=== PATIENT | female | born 1975 | race Caucasian/White ===

== ENCOUNTER → 2018-03-26 10:37 | Outpatient (CLI) | payer OTHER, SELFPAY ==
--- NOTE | 2018-03-26 10:41 | BI_ITS ---
MAMMOGRAPHY - BILATERAL SCREENING REASON FOR EXAM: Female, 42 years old. Routine annual screening examination. PERTINENT HISTORY: Mother with breast cancer. Grandmother with breast cancer. TECHNIQUE: Digital bilateral breast horacio (3D mammographic acquisition) in the CC and MLO projections. 2-D mediolateral oblique (MLO) and craniocaudad (CC) views of both breasts were obtained. CAD: Full Field Digital Mammography with Computer Added Detection was performed. COMPARISON: Comparison is made with prior study dated September 07, 2017 and February 11, 2016. FINDINGS: Breast Composition: The breasts are heterogeneously dense, which may obscure small masses. There are no dominant masses or suspicious calcifications. Stable appearance of the small bilateral axillary lymph nodes. There are 2 subcentimeter well-defined nodules in the central portion of the right breast in keeping with history of prior cysts. No other significant abnormalities are identified. There has been no significant change since the prior study. BI/SCREENING MAMM (CAD), BILAT IMPRESSION: Stable bilateral screening mammogram. Yearly follow-up mammogram recommended. (A) ASSESSMENT CATEGORY: BIRADS Category 2: Benign. A letter regarding these results will be sent to the patient by the facility within 30 days. Approximately 10% of breast cancers are not detected by mammography. A normal mammogram should not delay biopsy of a clinically suspicious abnormality. [id number] Electronically Signed: Mamadou Alas MD at 13:06 EST , Service support ,
== END ==
PROVIDERS: Referring Provider Obstetrics & Gynecology; Visit Provider Obstetrics & Gynecology
DX: Z12.31 Encounter for screening mammogram for malignant neoplasm of breast (principal)
CPT/HCPCS: 77063; 77067

== ENCOUNTER → 2018-10-05 | Outpatient (CLI) | payer OTHER, SELFPAY ==
--- NOTE | 2018-10-05 10:26 | MRI_ITS ---
STUDY: BILATERAL BREAST MR WITHOUT AND WITH CONTRAST REASON FOR EXAM: Female, 43 years old. Family history of breast cancer. TECHNIQUE: Multi-sequence multi-echo imaging of both breasts was performed with a dedicated breast coil. T1-weighted and T2-weighted images were performed before the administration of contrast. T1-weighted images were also performed after the administration of 17 IV Gadavist without complications. COMPARISON: Bilateral mammograms dated March 26, 2018. FINDINGS: RIGHT BREAST: The breast tissue is fatty with minimal background enhancement. There are no abnormal enhancing masses or areas of non-mass enhancement in the right breast. LEFT BREAST: The breast tissue is fatty with minimal background enhancement. There are no abnormal enhancing masses or areas of non-mass enhancement in the left breast. There are no enlarged or abnormal lymph nodes. There is no abnormality in the visualized regions of the chest or liver. MRI/Breast Bilateral W/O and W IMPRESSION: Normal breast MR examination with contrast. CATEGORY: BIRADS Category 1: Negative. A letter regarding these results will be sent to the patient by the facility within 30 days. Electronically Signed: Bro Yang MD at 16:16 EDT , Service support ,
[2018-10-05 13:05] LABS: T4 Free Direct 1.03 ng/dL (0.76-1.46)
[2018-10-07 08:53] LABS: Anti-Thyroglobulin AB < 1.0 IU/mL (0.0-0.9); Thyroglobulin, Serum Qt. < 0.1 ng/mL (1.5-38.5)
== END | disposition home or self-care (01) ==
DX: E89.0 Postprocedural hypothyroidism (principal); Z85.850 Personal history of malignant neoplasm of thyroid; Z12.31 Encounter for screening mammogram for malignant neoplasm of breast; Z80.3 Family history of malignant neoplasm of breast
CPT/HCPCS: 36415; 77049; 84432; 84439; 84443; 86800; A9575; A4216; C8908

== ENCOUNTER 2018-11-25 11:30 | Outpatient (RCR) | payer OTHER, SELFPAY ==
--- NOTE | 2018-11-04 09:05 | HP.OTEVAL ---
Patient's Visit Information TERESA SELF is a 43 year old F, referred to Occupational Therapy by Gregoria Porras MD, with a diagnosis of cubital tunnel syndrome. 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 Pt started to have numbness and tingling bilateral arms last year. 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 Pt R hand dominent. Pt states has more pain and numbness in L arm than right. Tends to pick phone up with L arm to talk and sleeps on L side. Hobbies: four wheeling, yoga. Indep w/ BADLs/IADLs. - Objective Objective/Observation: slight edema L hand, increased tightness R forearm. - ROM Elbow: R 0/136, L 0/140 - Strength Tying Machine Operator Lumber: R 80#, L 68# Lateral Pinch: R 11#, L 9# - Edema Other: Slight edema noted L hand and digits - Sensation Sensation Comments: Numbness and tingling noted R/L RF's and PF's when has bilateral elbows bent for amount of time. - Quick DASH-Disab of Arm,Shoulder& Hand Quick DASH Score: 20.4525 - Goals Goal:: Pt will increase L hand cannon pinion adjuster strength by 7# to increase indep w/ grasping for BADL tasks by d/c from OT services. Goal:: Pt will demo decreased numbness and tingling bilateral hands digits 4 and 5 with use of nerve glides, joint protection techniques and modalities as needed to only minimal numbness and tingling occassionally with monofilament test score of 2.83 by d/c from OT services. 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 Pt started to have numbness and tingling bilateral arms digits 4 and 5 last year. Pt would benefit from direct OT services to educate on joint protection/energy conservation, BUE HEP, decrease edema and numbness/tingling bilateral hands with use of modalities and exercises as needed 1-2x/wk x 4-6wks Rehabilitation Potential: Excellent - Anticipated Interventions Anticipated Interventions: A/AAROM/PROM, Strengthening, Edema Control, Massage, Modalities, Orthoses, Joint Protection/Energy Conservation, Education re assistive Equipment, Education re Diagnosis, Education re Skin Care and Precautions, Education re Self Massage Techniques, Education re Correct Donning Tech,Care&Wearing Sched Comp Garments, Home Program - Visit Plan Frequency: 1-2x /Week Duration: 4-6 Weeks General Plan: Pt seen for initial occupational therapy evaluation for medial epicondylitis L eblow, 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 Pt started to have numbness and tingling bilateral arms digits 4 and 5 last year. Pt would benefit from direct OT services to educate on joint protection/energy conservation, BUE HEP, decrease edema and numbness/tingling bilateral hands with use of modalities and exercises as needed 1-2x/wk x 4-6wks TEXT: Thank you for the opportunity to evaluate your patient. For Medicare and Medicare HMO plans, please review the plan of care and approve it. It will need to be FAXED BACK to us at [phone] for Medicare purposes. Please let me know if there are questions or concerns regarding this plan of care. Physician Signature: Date:
--- NOTE | 2019-03-15 17:22 | HP.OTDCNRP_ITS ---
HP - Discharge Summary - Patient Information TERESA SELF was seen in my office for initial evaluation on 11/02/18. The following Plan of Care was established for this patient: Initial Frequency: 1-2x /Week Initial Duration: 4-6 Weeks Plan: OT educated pt on pros/cons of use of brace for elbow. To be addressed next session. - Anticipated Interventions Anticipated Interventions: A/AAROM/PROM, Strengthening, Edema Control, Massage, Modalities, Orthoses, Joint Protection/Energy Conservation, Education re assistive Equipment, Education re Diagnosis, Education re Skin Care and Precautions, Education re Self Massage Techniques, Education re Correct Donning Tech,Care&Wearing Sched Comp Garments, Home Program This patient was last seen in our office 11/25/18. Pertinent comments regarding their Occupational therapy will appear below: Pt last seen 11/25/18. Pt did not meet all goals. D/C OT POC secondary to pt non- return. At this point I will be discontinuing this patient from occupational therapy. I would be happy to see this patient again in the future if found appropriate by the physician. Thank you! Kelsie Schaffer
== END 2018-11-25 19:00 | disposition home or self-care (01) ==
LOC: OT 11:30
PROVIDERS: Referring Provider Orthopaedic Surgery Hand Surgery; Visit Provider Orthopaedic Surgery Hand Surgery
DX: M77.02 Medial epicondylitis, left elbow (principal); G56.23 Lesion of ulnar nerve, bilateral upper limbs
CPT/HCPCS: 97035; 97110; 97140; 97165; 97166; 97530

== ENCOUNTER → 2019-02-08 13:00 | Outpatient (CLI) | payer OTHER, SELFPAY ==
--- NOTE | 2019-02-08 13:45 | MRI_ITS ---
STUDY: MRI RIGHT ANKLE WITHOUT CONTRAST REASON FOR EXAM: Right lateral ankle pain, injury 12/16/2018. TECHNIQUE: Standardized fat and water weighted pulse sequences were obtained in all 3 orthogonal planes. COMPARISON: None. FINDINGS: There is edema in the lateral and medial subcutis adipose space. There is a very small volume of fluid in the submalleolar posterior tibialis tendon sheath (inversion recovery sagittal image 19). The posterior tibialis tendon is morphologically normal. Normal flexor digitorum longus tendon. Normal flexor hallucis longus tendon. There is a very small volume of fluid in the submalleolar peroneal tendon sheath (inversion recovery sagittal image 5). The peroneus longus and brevis tendons are morphologically normal. Normal tibialis anterior tendon. Normal extensor hallucis longus tendon. Normal extensor digitorum longus tendons. Normal Achilles tendon and teno-osseous insertion. Normal plantar fascia. Normal plantar calcaneal tubercles. Normal intrinsic muscles of the rearfoot. Normal distal tibiofibular syndesmotic ligamentous complex. There is a mild sprain of the anterior talofibular ligament (inversion recovery series 8 image 12). Normal calcaneofibular and posterior talofibular ligaments. Normal subtalar ligaments and sinus tarsi. Normal deltoid ligamentous complexes. Normal plantar calcaneonavicular (spring) ligament. Normal tibiotalar articulation. Normal talar dome. Normal subtalar articulations. Normal talonavicular articulation. Normal calcaneocuboid articulation. Normal navicular-cuneiform articulations. MRI/Lower Ext Joint Only (Routine) IMPRESSION: Mild sprain of the anterior talofibular ligament. Very mild peroneal tenosynovitis. Very mild posterior tibialis tenosynovitis. Electronically Signed: Raz Hernandez MD at 14:55 EST Tel , Service support ,
== END ==
PROVIDERS: Referring Provider Podiatrist; Visit Provider Podiatrist
DX: S93.401A Sprain of unspecified ligament of right ankle, initial encounter (principal); S93.601A Unspecified sprain of right foot, initial encounter
CPT/HCPCS: 73721

== ENCOUNTER → 2019-02-17 15:11 | Outpatient (CLI) | payer OTHER, SELFPAY ==
--- NOTE | 2019-02-17 15:32 | MRI_ITS ---
STUDY: MRI RIGHT FOREFOOT WITHOUT CONTRAST REASON FOR EXAM: Female, 43 years old. rt foot sprain -- ankle/foot sprain 11/2018, pain 3rd,4th,5th MT with pain 3rd and 4th toe, painful to touch TECHNIQUE: Standardized fat and water weighted pulse sequences were obtained in all 3 orthogonal planes. COMPARISON: None. FINDINGS: Normal metatarsophalangeal joint of the hallux. Normal tibial and fibular sesamoids, with normal sesamoids-first metatarsal articulations. Normal interphalangeal joint of the hallux. Normal proximal and distal phalanges of the great toe. Normal medial and lateral heads of the flexor hallucis brevis tendons. Normal flexor and extensor hallucis longus tendons. Normal second through fifth metatarsophalangeal (MTP) joints. Normal interphalangeal joints of the second through fifth toes. Normal proximal, middle and distal phalanges of the second through fifth toes. There is intermetatarsal bursitis at the third interspace. There is adjacent 0.6 cm diminished T1 signal consistent with neuroma, series 4 image /36. Normal flexor and extensor tendons of the second through fifth toes. Normal visualized metatarsi. Normal intrinsic muscles of the forefoot. There is no demonstrated soft tissue abnormality. There is no demonstrated fracture. MRI/Lower Ext/No Jt/w/o IMPRESSION: No fracture or periosteal reaction. Interdigital neuroma at the third interspace. Electronically Signed: Uriel Alvarado MD at 23:07 EST , Service support ,
== END ==
PROVIDERS: Referring Provider Podiatrist; Visit Provider Podiatrist
DX: S93.401A Sprain of unspecified ligament of right ankle, initial encounter (principal); S93.601A Unspecified sprain of right foot, initial encounter
CPT/HCPCS: 73718

== ENCOUNTER 2019-04-05 16:00 | Outpatient (RCR) | payer OTHER, SELFPAY ==
--- NOTE | 2019-03-17 13:28 | HP.OTEVAL_ITS ---
Patient's Visit Information TERESA SELF is a 43 year old F, referred to Occupational Therapy by Gregoria Porras MD, with a diagnosis of lesion of ulnar nerve R/L. Date of Evaluation: 03/17/19 Occupational Therapist: Kelsie Schaffer - Subjective Subjective: Pt seen for initial occupational therapy evaluation for lesion of ulnar nerve R upper limb, lesion of ulnar nerve left upper limb, medial epicondylitis L eblow with increased pain R elbow. Pt was here last fall for therapy and broke her foot and had to be on crutches for 9 wks therefore stopped her therapy bilateral arms. Now returning for therapy. R arm pain Started to get aggrevated when started to use crutches about 2 months ago after fx R foot. Pt does have slight pain when poking around on L elbow and minimal numbness L arm, increased numbness/tingling R UE elbow distally with increased pain R arm rest and movement. Pt states L arm pain is much better from last therapy. 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 - Pain R arm 4 Pain Intensity Range: 4, 7 - Objective Objective/Observation: increased edema R elbow/forearm, increased pain with movmeent R elbow. - ROM Elbow: R 0/120', L 00/132' Wrist: R 65'/90', L 70'/92' - Strength Cloth Painter: R 60#, L 70# Lateral Pinch: R 8#, L 11# Tripod Pinch: R 8#, L 9# - Edema Other: Slight edema R elbow lateral side - Sensation Sensation Comments: Numbness and tingling R RF, PF - Quick DASH-Disab of Arm,Shoulder& Hand Quick DASH Score: 34.0900 - Goals Goal:: Pt will progress w/ R insulation inspector strength by 10# to assist with BADL and IADL tasks indep. Pt will progress w/ L insulation inspector strength by 5# to assist w/ BADL/IADL tasks indep Goal:: Pt will progress w/ R elbow flexion AROM from 120' to 130' by d/c from OT services Goal:: Pt will demo no pain with movement R elbow greater than 2/10 by d/c from OT services Goal:: Pt will be educated on joint protection bilateral arms with good understanding and demo 100%x Goal:: Pt will be educated on BUE HEP with good understanding and demo 100%x - Rehabilitation General Assessment: Pt seen for OT evaluation for increase pain bilateral elbows distally to bilateral hands, R UE more painful than L UE. Pt demo decreased R elbow flexion and decreased strength with incrased pain indicating a need for skilled OT interventions to increase bilateral hand strength, decrease pain and increase ROM R elbow flexion to increase pts quality of life 1-2x/wk x 4-6wks. Rehabilitation Potential: Excellent - Anticipated Interventions Anticipated Interventions: A/AAROM/PROM, Strengthening, Edema Control, Massage, Triggerpoint Release, Modalities, Orthoses, Joint Protection/Energy Conservation, Fine Motor Coord/Calvin, Education re assistive Equipment, Education re Diagnosis, Education re Self-Bandaging Techniques, Education re Self Massage Techniques, Education re Correct Donning Tech,Care&Wearing Sched Comp Garments, Home Program - Visit Plan Frequency: 1-2x /Week Duration: 4-6 Weeks General Plan: increase bilateral hand strength, decrease pain, educate on HEP and increase ROM R elbow flexion to increase pts quality of life 1-2x/wk x 4- 6wks. TEXT: Thank you for the opportunity to evaluate your patient. For Medicare and Medicare HMO plans, please review the plan of care and approve it. It will need to be FAXED BACK to us at [phone] for Medicare purposes. Please let me know if there are questions or concerns regarding this plan of care. Physician Signature: Date:
== END 2019-04-05 19:00 | disposition home or self-care (01) ==
LOC: OT 16:00
PROVIDERS: Referring Provider Orthopaedic Surgery Hand Surgery; Visit Provider Orthopaedic Surgery Hand Surgery
DX: G56.23 Lesion of ulnar nerve, bilateral upper limbs (principal); M77.02 Medial epicondylitis, left elbow; R20.0 Anesthesia of skin
CPT/HCPCS: 97110; 97140; 97165; 97166; 97530

== ENCOUNTER 2019-05-11 16:03 | Outpatient (RCR) | payer OTHER, SELFPAY ==
--- NOTE | 2019-05-11 16:51 | HP.PTEVAL_ITS ---
Patient's Visit Information TERESA SELF is a 43 year old F referred to Physical Therapy by Dr. Chace Hernandes MD with a diagnosis of vertigo. Date of Evaluation: 05/11/19 Physical Therapist: ROLAND Menendez - Visit Plan Frequency: 1-2x /Week Duration: 3 Weeks Plan: 1-2X/ week for 3 weeks if needed for repositioning for BPPV with HEP if needed. - Subjective Subjective: Pt has a hx of vertigo. Had is several years ago and did some manuvers and it got better. A month and 1/2 ago she went to a chiropractor and when she adjusted her she started to get the vertigo symptoms again and was doing the manuver and it went away. This past Thursday she woke up and sat up out of bed and fell. She is not sure what is causing it. She knows that it is to the Right... when she leans bw she gets it but not as bad as when she goes to the Right. Her has been trying at home manuvers that they found online. The room spins when roll to the Right and lasts about to 20-40 seconds..... She is nauseated with the manuver or when goes to lay down. Pt has been fallin jenny but has been catching herself. Going down steps has been an issue....so holdingonto rails. - Objective + R Hallpike for torsional nystagmus that lasted approx 30 seconds with dizziness. Performed R EPLY from the Hallpike position. second R Hallpike was negative for nystagmus and dizziness. Went ahead and did R Eply again. Advised pt to not do any prolonged looking down for the remaineer of the day. - Goals Goal 1:: I HEP if needed Goal Time Frame: 2-4 Weeks Goal 2:: Abolish dizziness when roll to the R side Goal Time Frame: 2-4 Weeks - Rehabilitation Potential Rehabilitation Potential: Good - Anticipated Interventions Patient/Client Instruction: Educate patient on: Condition, Plan of Care For the Purpose of:: To improve muscle performance and motor function, To improve ability to perform ADL's, To increase tolerance to activity/condition/position, To improve performance and independence with ADL's, To improve gait and locomotor functions, To improve balance Therapeutic Exercise to Include: Balance training For the Purpose of:: To improve ability to perform ADL's, To increase tolerance to activity/condition/position, To improve performance and independence with ADL's, To improve ability of physical actions for home/community/work/leisure Manual Therapy Techniques to Include: Other Comment: EPLY For the Purpose of:: To improve ability to perform ADL's, To increase tolerance to activity/condition/position, To improve performance and independence with ADL's, To improve gait and locomotor functions, To improve balance Thank you for the opportunity to evaluate your patient. For Medicare and Medicare HMO plans, please review the plan of care and approve it. It will need to be FAXED BACK to us at [phone] for Medicare purposes. For Medicare only, by signing this I certify the plan of care. Please let me know if there are questions or concerns regarding this plan of care. Physician Signature: Date:
--- NOTE | 2019-07-28 13:14 | HP.PT.NRP ---
TERESA SELF was seen in my office for initial evaluation on 05/11/19. The following Plan of Care was established for this patient: Initial Frequency: 1-2x /Week Initial Duration: 3 Weeks Patient/Client Instruction: Educate patient on: Condition, Plan of Care For the Purpose of:: To improve muscle performance and motor function, To improve ability to perform ADL's, To increase tolerance to activity/condition/position, To improve performance and independence with ADL's, To improve gait and locomotor functions, To improve balance Therapeutic Exercise to Include: Balance training For the Purpose of:: To improve ability to perform ADL's, To increase tolerance to activity/condition/position, To improve performance and independence with ADL's, To improve ability of physical actions for home/community/work/leisure Manual Therapy Techniques to Include: Other Comment: EPLY For the Purpose of:: To improve ability to perform ADL's, To increase tolerance to activity/condition/position, To improve performance and independence with ADL's, To improve gait and locomotor functions, To improve balance This patient was last seen in our office 05/11/19. Pertinent comments regarding their Physical therapy will appear below: DC PT. Pt reported that she was 90% better. At this point I will be discontinuing this patient from physical therapy. I would be happy to see this patient again in the future if found appropriate by the physician. Thank you! Haritha Torres, MPT
== END 2019-05-11 19:00 | disposition home or self-care (01) ==
LOC: PT 16:03
PROVIDERS: Referring Provider Family Medicine; Visit Provider Family Medicine
DX: R42 Dizziness and giddiness (principal)
CPT/HCPCS: 97161

== ENCOUNTER 2019-10-14 08:00 | Outpatient (RCR) | payer OTHER, SELFPAY ==
--- NOTE | 2019-10-07 16:16 | HP.PTEVAL ---
Patient's Visit Information TERESA SELF is a 44 year old F referred to Physical Therapy by LANE NAPIER with a diagnosis of vertigo. Date of Evaluation: 10/07/19 Physical Therapist: ROLAND Menendez - Visit Plan Frequency: 1x/Week Duration: 3 Weeks Plan: 1X/ week for 3 weeks to abolish dizziness with repositioning - Subjective It is not as severe this time but she is spinning and feels nausea. It happens if she bend over in the kitchen, if she lays back, or lays to the Right. - Objective - Hallpike L for nystagmus or dizziness. +Hallpike R for slow torsional nystagmus with some upset stomach feeling. Treated with R Eply. Second Hallpike was negative for dizziness and nystagmus. Treated with R Eply anyway - Goals Goal 1:: I HEP Goal Time Frame: 1 Week Goal 2:: Abolish dizziness when laying down on back or on R side Goal Time Frame: 1 Week - Rehabilitation Potential Rehabilitation Potential: Good - Anticipated Interventions Patient/Client Instruction: Educate patient on: Condition, Plan of Care For the Purpose of:: To improve performance and independence with ADL's, To improve ability of physical actions for home/community/work/leisure, To improve balance Therapeutic Exercise to Include: Strength training, Balance training, Flexibilty training, Neuromotor development, Passive ROM, Active ROM For the Purpose of:: To improve muscle performance and motor function, To increase tolerance to activity/condition/position, To improve performance and independence with ADL's, To improve gait and locomotor functions, To increase flexibility/ROM, To improve balance Manual Therapy Techniques to Include: Other For the Purpose of:: To improve muscle performance and motor function Thank you for the opportunity to evaluate your patient. For Medicare and Medicare HMO plans, please review the plan of care and approve it. It will need to be FAXED BACK to us at [phone] for Medicare purposes. For Medicare only, by signing this I certify the plan of care. Please let me know if there are questions or concerns regarding this plan of care. Physician Signature: Date:
--- NOTE | 2019-12-14 13:11 | HP.PT.NRP ---
TERESA SELF was seen in my office for initial evaluation on 10/07/19. The following Plan of Care was established for this patient: Initial Frequency: 1x/Week Initial Duration: 3 Weeks Patient/Client Instruction: Educate patient on: Condition, Plan of Care For the Purpose of:: To improve performance and independence with ADL's, To improve ability of physical actions for home/community/work/leisure, To improve balance Therapeutic Exercise to Include: Strength training, Balance training, Flexibilty training, Neuromotor development, Passive ROM, Active ROM For the Purpose of:: To improve muscle performance and motor function, To increase tolerance to activity/condition/position, To improve performance and independence with ADL's, To improve gait and locomotor functions, To increase flexibility/ROM, To improve balance Manual Therapy Techniques to Include: Other For the Purpose of:: To improve muscle performance and motor function This patient was last seen in our office 10/14/19. Pertinent comments regarding their Physical therapy will appear below: VALARIE PT as pt did not schedule a follow up At this point I will be discontinuing this patient from physical therapy. I would be happy to see this patient again in the future if found appropriate by the physician. Thank you! Haritha Torres, MPT
== END 2019-10-14 19:00 | disposition home or self-care (01) ==
LOC: PT 08:00
DX: R42 Dizziness and giddiness (principal)
CPT/HCPCS: 97110; 97161

== ENCOUNTER 2019-11-24 08:59 | Emergency (ER) | payer OTHER, SELFPAY ==
[2019-11-24 09:02] VITALS: BP 159/100; PULSE 71; RESP 17; TEMP 36.2; O2SAT 100; BMI 33.5
--- NOTE | 2019-11-24 09:21 | VDLE_ITS ---
Reason For Study: Pain Procedure LEFT Exam performed portable in ED. GSV is normal. A preliminary report was called and/or faxed CFV is compressible, spontaneous, phasic, to RN. competent, and demonstrates normal augmentation. FV is compressible, spontaneous, phasic, competent and demonstrates normal augmentation. POP V is compressible, spontaneous, phasic, competent and demonstrates normal augmentation. T/P Trunk is compressible. PTV is compressible. LT PerV is compressible. Interpretation Summary There is no evidence of left lower extremity deep vein thrombosis. Left great saphenous vein appears patent and compressible segmentally. Ordering Physician: Humberto Castillo Referring Physician: Chace Hernandes Performed By: Gisela Harley RVT
--- NOTE | 2019-11-24 09:31 | ED.VISSUMM ---
- ER Visit Summary Date of Service: 11/24/19 Chief Complaint: Left calf pain History of Present Illness: The patient is a [address] Paz. She reports she is had pain in her left calf for approximately 2 weeks. She had a deep tissue massage 5 days ago and her pain seemed to resolve. However, yesterday while she was walking through the grocery store she felt a pop in her calf and the pain is much worse. She describes it as sharp pain is 9-10 with walking and 2 out of 10 at rest. She denies any paresthesias or weakness. She denies any trauma. No fall, MVA, or change in activity. No personal history of DVT. She does have a family history of DVT. She denies any chest pain or shortness of breath. Physical Examination: Vitals: Stable. Afebrile. General: Well-nourished and well-developed. Head: Normocephalic atraumatic. Neck: Supple, no lymphadenopathy. No JVD. Nontender. Cardiovascular: Regular rate and rhythm. No murmurs. Respiratory: No respiratory distress. Clear to auscultation bilaterally. Abdominal: Soft, nontender, nondistended, normal bowel sounds. No guarding, rebound, or peritoneal signs. Back: Nontender. Extremities: Moderate tenderness to palpation over the left calf. There is no contusion. No erythema or warmth. Her Achilles intact. She has a normal Ortega test. 2+ dorsalis pedis pulse bilaterally. Skin: Normal color, no rash. Neurologic: Alert and oriented ?3. Cranial nerves II through XII are intact. Normal strength and sensation. Psych: Normal affect. Test Results: Left lower extremity Doppler is negative. Emergency Department Course and Treatment: Patient refused pain medications. She is resting comfortably. Treatment Plan: Patient will be discharged with symptomatic care. Ice and warm compresses to the area. Tylenol and/or ibuprofen for pain. Placed in a walking boot. Her tendon is intact, but I did discuss her the possibility of a partial Achilles tendon tear. Follow-up with your primary care physician in 1 week if not improving. Return to the emergency department for any worsening symptoms. Disposition: To home in improved and stable condition. Impression: 1. Left calf pain, acute. This note was generated with [employer] software. It may contain incorrect words, spelling, and punctuation that were not noted in review of the chart prior to signing ED Disposition - Plan for ED Patient: Instructions: ED Muscle Pain Leg Cramps Referrals: Chace Hernandes MD [Primary Care Provider] - 1 Week if not improving
--- NOTE | 2019-11-24 10:36 | ED.RN ---
no walking boot, med. available. called sukhjinder. to call patient when arrives and to machine operator picker
== END 2019-11-24 10:38 | disposition home or self-care (01) ==
LOC: ED 09:31
PROVIDERS: Emergency Provider Emergency Medicine; PCP Family Medicine
DX: M79.662 Pain in left lower leg (principal); I10 Essential (primary) hypertension; E78.00 Pure hypercholesterolemia, unspecified; G43.909 Migraine, unspecified, not intractable, without status migrainosus; Z86.19 Personal history of other infectious and parasitic diseases; Z85.850 Personal history of malignant neoplasm of thyroid; Z79.899 Other long term (current) drug therapy
CPT/HCPCS: 93971; 99282

== ENCOUNTER 2020-11-13 10:39 | Outpatient (RCR) | payer OTHER, SELFPAY ==
--- NOTE | 2020-11-13 11:24 | HP.PTEVAL ---
Patient's Visit Information TERESA SELF is a 45 year old F referred to Physical Therapy by Dr. Chace Hernandes MD with a diagnosis of vertigo.. Date of Evaluation: 11/13/20 Physical Therapist: Hiro Cummings, DPT, OCS, CSCS - Visit Plan Plan: f/u two weeks to ensure vertigo gone or call prior if it returns. It appears like she probably self treted effectively 2 days ago and has been much better since then. Will call prior if dizzyness returns and see weekly if it does for oculomotor adn vestibular positional interventions if needed up to 4 weeks. - Subjective [facility] and seen Haritha in here a few times, it always helps. Chiropractic adjustment usually knocks stones loose and it started a month ago with adjustment. Was taught to self treat but has not taken care of the whole problem. Still has some dizzyness. Lying in bed makes her spin and nauseous for 15 seconds. nauseous then. Leaning down and standing up can cause it also. Employed and not a problem, sleeping is not a problem. Home activities are normal just careful in bed and with turning and bending. No balance problems. - Objective Walks I into and out of PT with good balance. Transfer I. cervical aROM WFL and without pain today. UE AROM WFL and good strength. - B hallpike sheela. - roll test. No dizzyness recreating posoitioning in bed that usually causes it. - Balance/Special Test Scores Dizziness Score: 8 - Goals Goal 1:: abolish dizzyness x 1 week Goal Time Frame: 2-4 Weeks Goal 2:: I management BD exerices Goal Time Frame: 2-4 Weeks - Rehabilitation Potential Physical Therapy Diagnosis: resolving/resolved BPPV Rehabilitation Potential: Good - Anticipated Interventions Patient/Client Instruction: Educate patient on: Condition, Plan of Care For the Purpose of:: To increase tolerance to activity/condition/position Comment: postiional ex adn tretments. For the Purpose of:: To increase tolerance to activity/condition/position Thank you for the opportunity to evaluate your patient. For Medicare and Medicare HMO plans, please review the plan of care and approve it. It will need to be FAXED BACK to us at [phone] for Medicare purposes. For Medicare only, by signing this I certify the plan of care. Please let me know if there are questions or concerns regarding this plan of care. Physician Signature: Date:
--- NOTE | 2021-01-07 14:46 | HP.PT.NRP ---
TERESA SELF was seen in my office for initial evaluation on 11/13/20. The following Plan of Care was established for this patient: Patient/Client Instruction: Educate patient on: Condition, Plan of Care For the Purpose of:: To increase tolerance to activity/condition/position For the Purpose of:: To increase tolerance to activity/condition/position This patient was last seen in our office 11/13/20. Pertinent comments regarding their Physical therapy will appear below: Pt seen for intial evaluation and was doing well. was to call in the next two weeks if symptoms returned but she did not call and i will discontinue her from my care. At this point I will be discontinuing this patient from physical therapy. I would be happy to see this patient again in the future if found appropriate by the physician. Thank you! Hiro Cummings, DPT, OCS, CSCS Balance/Gait/Functional tests - Balance/Special Test Scores Dizziness Score: 8
== END 2020-11-13 19:00 | disposition home or self-care (01) ==
LOC: PT 10:39
PROVIDERS: PCP Family Medicine; Referring Provider Family Medicine; Visit Provider Family Medicine
DX: R42 Dizziness and giddiness (principal)
CPT/HCPCS: 97161

== ENCOUNTER 2021-05-09 16:34 | Outpatient (CLI) | payer OTHER, SELFPAY ==
--- NOTE | 2021-05-09 16:45 | RAD_ITS ---
INDICATION: M51.34 EXAMINATION/TECHNIQUE: X-RAY - XR Spine Thoracic 3 Views COMPARISON: None FINDINGS: VERTEBRAE: Preserved vertebral body height. No fracture. No spondylolisthesis. Preservation of the normal thoracic kyphosis. No significant facet arthropathy. Stable partially visualized surgical fusion hardware in the cervical spine. DISCS: Disc spaces are maintained. INCLUDED CHEST/ABDOMEN: No acute abnormalities. Cholecystectomy clips in the right upper quadrant. RAD/Thoracic Spine 3 Views IMPRESSION: No evidence of thoracic spinal fracture or spondylolisthesis. Electronically Signed: Edgar Shepherd, at 8:08 EDT ,
== END 2021-05-09 23:59 | disposition home or self-care (01) ==
PROVIDERS: PCP Family Medicine; Visit Provider Anesthesiology Pain Medicine
DX: M51.34 Other intervertebral disc degeneration, thoracic region (principal)
CPT/HCPCS: 72072

== ENCOUNTER → 2021-07-24 | Outpatient (CLI) | payer OTHER, SELFPAY ==
--- NOTE | 2021-07-24 12:48 | CT_ITS ---
STUDY: CT THORACIC SPINE WITHOUT CONTRAST REASON FOR EXAM: Female, 45 years old. Herniated disc thoracic spine RADIATION DOSAGE (If Supplied By Facility): CTDIvol = ( 18.42 ) mGy, DLP = ( 668.69 ) mGycm TECHNIQUE: The patient was scanned in a multi detector CT scanner. High resolution imaging was performed. Images were obtained from T1 to T12 vertebral level. Sagittal and coronal images were reconstructed. Individualized dose optimization techniques were used for this CT. COMPARISON: None. FINDINGS: The patient is status post anterior fusion of the lower cervical spine. Status post thyroid resection. Normal kyphosis of the thoracic spine. There is no substantial scoliosis. There is multilevel endplate spondylosis of the thoracic spine. There is multilevel degenerative disc disease with loss of the disc space heights. Hypertrophy of the facet joint on the left side at the T10 level causing mild compression of the posterior lateral aspect of the thecal sac. The soft tissue structures are unremarkable. CT/Spine Thoracic without Contras IMPRESSION: Multilevel degenerative changes. 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 Electronically Signed: Mamadou Alas MD at 13:44 EDT ,
== END | disposition home or self-care (01) ==
PROVIDERS: PCP Family Medicine; Referring Provider Orthopaedic Surgery; Visit Provider Orthopaedic Surgery
DX: M51.24 Other intervertebral disc displacement, thoracic region (principal)
CPT/HCPCS: 72128

== ENCOUNTER → 2021-08-02 | Outpatient (CLI) | payer OTHER, SELFPAY ==
--- NOTE | 2021-08-02 15:38 | MRI_ITS ---
STUDY: MRI THORACIC SPINE WITHOUT CONTRAST REASON FOR EXAM: Female, 45 years old. L side pain, anterior rib radiates into lower thoracic TECHNIQUE: Standardized fat and water weighted pulse sequences were obtained in the sagittal and axial planes. COMPARISON: 07/24/2021 FINDINGS: Normal kyphosis of the thoracic spine. There is no substantial scoliosis. T1-2, T2-3, T3-4, T4-5, T5-6, T6-7, T7-8, T8-9, T10-11, T11-12: Multilevel degenerative disease without significant disc bulge. Normal central canal and intervertebral neural foramina at the corresponding levels. At T9-10 there is 3 mm spondylolisthesis due to degenerative disease and facet joints. There is mild narrowing of the neural foramina. The spinal canal is not significantly narrowed. Normal visualized thoracic cord. Normal conus medullaris that terminates at the . There is signal abnormality of the bone marrow at the anterior aspect of the vertebral body of T11 most likely represent atypical hemangioma since no change in the trabecular bone is noted on the prior CT scan. The soft tissue structures are unremarkable. MRI/Spine Thoracic (Routine) IMPRESSION: Multilevel degenerative changes of the thoracic spine as described above. Electronically Signed: Hector Serna MD at 9:55 EDT ,
== END | disposition home or self-care (01) ==
LOC: MRI 15:38
PROVIDERS: PCP Family Medicine; Referring Provider Orthopaedic Surgery; Visit Provider Orthopaedic Surgery
DX: M51.24 Other intervertebral disc displacement, thoracic region (principal)
CPT/HCPCS: 72146

== ENCOUNTER → 2021-12-20 | Outpatient (CLI) | payer OTHER, SELFPAY ==
--- NOTE | 2021-12-20 08:30 | MRI_ITS ---
STUDY: MRI RIGHT FOREFOOT WITHOUT CONTRAST REASON FOR EXAM: Female, 46 years old. RIGHT foot stress fx TECHNIQUE: Standardized fat and water weighted pulse sequences were obtained in all 3 orthogonal planes. COMPARISON: February 17, 2019 FINDINGS: Normal metatarsophalangeal joint of the hallux. Normal tibial and fibular sesamoids, with normal sesamoids-first metatarsal articulations. Normal interphalangeal joint of the hallux. Normal proximal and distal phalanges of the great toe. Normal medial and lateral heads of the flexor hallucis brevis tendons. Normal flexor and extensor hallucis longus tendons. Normal second through fifth metatarsophalangeal (MTP) joints. Normal interphalangeal joints of the second through fifth toes. Normal proximal, middle and distal phalanges of the second through fifth toes. There is intermetatarsal bursitis of the first through third interspaces. There is 0.7 cm diminished T1 signal interdigital neuroma at the third interspace, series 7 image 16/40. Normal flexor and extensor tendons of the second through fifth toes. Normal visualized metatarsi. Normal intrinsic muscles of the forefoot. MRI/Lower Ext/No Jt/w/o IMPRESSION: Interdigital neuroma at the third interspace. No fracture or periosteal reaction. Electronically Signed: Uriel Alvarado MD at 12:09 EDT ,
== END | disposition home or self-care (01) ==
LOC: MRI 08:04
PROVIDERS: PCP Family Medicine; Referring Provider Podiatrist; Visit Provider Podiatrist
DX: M84.30XA Stress fracture, unspecified site, initial encounter for fracture (principal)
CPT/HCPCS: 73718

== ENCOUNTER 2022-03-28 05:59 | Day surgery (SDC) | payer OTHER, SELFPAY ==
[2022-03-28 06:22] LABS: Internal QC Validated? YES +Cl - CLEAR BKGD; Pregnancy, Urine Negative Negative
[2022-03-28 06:28] VITALS: BP 126/79; PULSE 55; RESP 16; TEMP 36.8; O2SAT 98; BMI 35.5
[2022-03-28] MEDS: Lactated Ringers 1,000 ML 15 ML IV (06:43)
[2022-03-28] MEDS: Cefazolin 1 GM/50 ML BAG IV (07:30)
--- NOTE | 2022-03-28 07:30 | TISS_PTH ---
PATIENT: TERESA SELF [place] [facility] [place][id number] AGE/SX: 46/F ROOM: RE03/28/[address]: Dr. Analia Saucedo DPM : 1975 BED: DIS: 03/28/2022 SPEC #: [id number] RECD: 03/28/22 10:57 STATUS: SHARRI REIrene #: [id number] KADE: 03/28/22 07:[address]: Analia Saucedo DEPT: SURGICAL PATHOLOGY RECD BY: Siria Almeida ENTERED: 03/28/22 13:18 SP TYPE: Tissue Bx DIAMOND DR: Dr. Chace Hernandes MD Tissues: NEUROMA Procedures: Surgery Specimen Level III HEADER OPERATION: Excision neuroma third IM space PRE-OP DIAGNOSIS: Neuroma right third IM space TISSUE SUBMITTED: Neuroma right foot MICROSCOPIC DIAGNOSIS Soft tissue of right foot, excision: Consistent with neuroma. AM:gaviota 03/31/2022 MICROSCOPIC DESCRIPTION Slides are reviewed. GROSS DESCRIPTION Received in fixative is one container labeled with the patient's name and designated neuroma right foot. The specimen consists of two pieces of hutchins-yellow soft tissue that in aggregate measure 2.5 x 1.5 x 0.3 cm. The entire specimen is submitted in one cassette. / SJ:gaviota 03/28/2022 TC:1 CPT: 38349
[2022-03-28] MEDS: Lidocaine 1% (30 ml sdv) 30 ML Vial (07:37)
[2022-03-28] MEDS: Bupivacaine 0.5% PF 10 ML VIAL (08:08)
--- NOTE | 2022-03-28 08:15 | OP.PCM_ITS ---
Report of Operation Date of Procedure: 03/28/22 Pre-Operative Diagnosis: neuroma right 3rd intermetatarsal space Post-Operative Diagnosis: same Surgery/Procedure Performed:: excision neuroma 3rd intermetatarsal space Description of Surgical Findings:: Large neuroma. No infection. Surgeon: Analia Saucedo computer systems security administrator: None Type of Anesthesia: MAC/Supplemental/Local Anesthesiologist: Hiro Benavidez Specimen's removed: soft tissue Drains: none Estimated Blood Loss (mL): minimal Description of Procedure: Patient was brought to the OR and placed on the operating table in supine position. The right foot was scrubbed, prepped, and draped in the usual aseptic manner. The foot was then elevated to exsanguinate the limb and the pneumatic ankle tourniquet was inflated to 250 mmHg. A pre operative block to the right 3rd IM space was performed, using 3cc's of 1% lidocaine plain. Attention was then directed to the dorsal right 3rd IM space where a 4 cm linear longitudinal incision was performed dorsal to the space with the distal aspect ending in the webspace, between toes 3 and 4. The incision was deepened through blunt dissection. Care was taken to retract vital neurovascular structures. Then, the neuroma was located and was dissected free from its soft tissue attachments proximal to the metatarsal heads, as well as distally. It was then excised and passed from the operative field to be sent to pathology. The space was then explored and fatty tissue was also removed. The wound was flushed with copious amounts of NSS. Next, the deep structures were reapproximated and coapted with 3-0 vicryl sutures. Subcutaneous tissues were reapproximated and coapted with the same suture. Skin was then reapproximated and coapted utilizing 4-0 monocryl sutures. The incision was reinforced with cavalon and steri strips. A post operative block consisting of 7cc's of .25% plain marcaine was infiltrated about the operative area. Xeroform was applied along with a sterile compressive dressing consisting of 4x4's, cling, kerlix, and an duncan wrap. The tourniquet was released and a prompt hyperemic response was noted to all digits of the right foot. The patient tolerated the procedure well. She was transferred to the recovery room with VSS and vascular status intact to all digits of the right foot. She will be discharged home with written and oral post operative instructions. She is to keep the dressing clean, dry, intact. Wear surgical shoe at all times while ambulated, and she was cautioned on activity level. Rest, ice, elevate right foot. Take pain medication as directed. Follow up in Dr. Saucedo's office for all post operative care and if any problems arise. Grafts/Implants Used: none Complications none Admit VTE Documentation VTE Present on Admission: No VTE Pharm Prophylaxis ordered?: No Reason prophylaxis not ordered:: Treatment Not Indicated
[2022-03-28 08:19] VITALS: BP 117/69; BP 126/79; PULSE 16; RESP 92; TEMP 36.5; O2SAT 97
[2022-03-28 08:25] VITALS: BP 116/73; BP 126/79; PULSE 74; RESP 16; O2SAT 93
[2022-03-28 08:30] VITALS: BP 114/77; BP 126/79; PULSE 71; RESP 16; O2SAT 94
[2022-03-28 08:35] VITALS: BP 118/78; BP 126/79; PULSE 65; RESP 16; TEMP 36.5; O2SAT 97
[2022-03-28] MEDS: HYDROcodone Bitartrate/Apap 5/325 Tablet PO (09:10)
[2022-03-28 09:40] VITALS: BP 126/79; BP 128/79; PULSE 62; RESP 16; TEMP 36.2; O2SAT 97
== END 2022-03-28 09:59 | disposition home or self-care (01) ==
LOC: SDC 06:00 → AC 06:01
PROVIDERS: Anesthesiology; PCP Family Medicine; Referring Provider Podiatrist; Visit Provider Podiatrist
PROC: (CPT 28080; principal; 2022-03-28 07:15)
DX: G57.61 Lesion of plantar nerve, right lower limb (principal); K21.9 Gastro-esophageal reflux disease without esophagitis; I10 Essential (primary) hypertension; E78.00 Pure hypercholesterolemia, unspecified; Z86.19 Personal history of other infectious and parasitic diseases; G58.8 Other specified mononeuropathies
CPT/HCPCS: 28080; 01470; 81025; 88304; 88305; J7120; J2405

== ENCOUNTER 2024-01-26 09:17 | Emergency (ER) | payer OTHER, SELFPAY ==
[2024-01-26 09:21] VITALS: BP 153/92; PULSE 92; RESP 18; TEMP 36.5; O2SAT 99; BMI 38.1
--- NOTE | 2024-01-26 09:49 | EDS_ITS ---
HPI History of Present Illness Chief Complaint: Fall Detail of Chief Complaint: Fall Informant: patient Narrative Narrative: Patient presents to the emergency department after sustaining a fall today. She states that she was at a job interview and was wearing heels. She walked from a carpeted area to a tiled area and she thinks her right ankle may have twisted causing her to fall onto her left side. Does not think she struck her head. There is no loss of consciousness. She initially had a hard time getting up and is complaining of pain in her neck as well as her left elbow and left knee and left hip. Eventually EMS helped her up. She been able to bear weight. She is concerned because she has had prior history of a cervical fusion at C4-5 about 8 years ago. [facility] Medical History (Updated 01/26/24 @ 11:[address] Zoltan Bal, DO) Wears contact lenses Wears glasses History of Clostridium difficile infection Cancer Anxiety History of steroid therapy Thyroid disease Restless legs Injury of head and neck History of IBS Gastric reflux Former smoker CPAP (continuous positive airway pressure) dependence Sleep apnea History of echocardiogram History of stress test Cardiology follow-up encounter Hemorrhoids Migraines High cholesterol HTN (hypertension) Hypothyroid C. difficile colitis Home Medications ?Medication ?Instructions ?Recorded ?Last Taken ?Type Cholecalciferol (Vitamin D3) 5,000 units PO DAILY 11/24/19 Unknown History [Vitamin D3] Lactobacillus acidophilus 10 1 ea PO DAILY 11/24/19 Unknown History billion cell capsule cetirizine 10 mg tablet 10 mg PO DAILY 11/24/19 Unknown History multivitamin 1 ea PO DAILY 11/24/19 Unknown History pantoprazole 40 mg tablet,delayed 40 mg PO DAILY 11/24/19 Unknown History release rizatriptan 10 mg tablet 10 mg PO .X1 PRN headache 11/24/19 Unknown History levothyroxine 88 mcg capsule 88 mcg PO DAILY 07/10/21 03/28/22 History collagen,hydrolysate 500 mg-biotin 1 cap PO DAILY 03/21/22 Unknown History 800 mcg-ascorbic acid 50 mg capsule (Collagen 1500 Plus C) duloxetine 30 mg capsule,delayed 30 mg PO DAILY 03/21/22 Unknown History release isosorbide mononitrate 30 mg 30 mg PO DAILY 03/21/22 Unknown History tablet,extended release 24 hr liothyronine 5 mcg tablet 5 mcg PO DAILY 03/21/22 03/28/22 History metoprolol tartrate 25 mg tablet 25 mg PO BID 03/21/22 03/28/22 History norethindrone 1 mg-ethinyl 1 tab PO DAILY 03/21/22 Unknown History estradiol 10 mcg (24)-iron 10 mcg(2) tablet (Lo Loestrin Fe) spironolactone 50 mg tablet 50 mg PO DAILY 03/21/22 Unknown History zinc 50 mg tablet 50 mg PO DAILY 03/21/22 Unknown History Allergy/AdvReac Type Severity Reaction Status Date / Time sumatriptan (From Imitrex) Allergy Severe chest pain Verified 01/26/24 09:20 amlodipine Allergy Hives Verified 01/26/24 09:20 Iodinated Contrast Media Allergy Hives Verified 01/26/24 09:20 (CONTRASTS) Penicillins Allergy CHILDHOOD Verified 01/26/24 09:20 ALLERGY promethazine (From Phenergan) Allergy Anaphylaxis Verified 01/26/24 09:20 sulfamethoxazole (From AdvReac Upset Verified 01/26/24 09:20 Bactrim) Stomach tramadol AdvReac Itching Verified 01/26/24 09:20 trimethoprim (From Bactrim) AdvReac Upset Verified 01/26/24 09:20 Stomach Family History Grandfather Hypertension Heart disease Cancer Grandmother Hypertension Heart disease Cancer Mother Hypertension Heart disease Cancer Surgical History (Updated 03/21/22 @ 11:28 by Abbi Roach) History of cardiac catheterization H/O thyroidectomy S/P cubital tunnel release S/P discectomy S/P decompression of ulnar nerve H/O neck surgery S/P laparoscopic cholecystectomy S/P appendectomy S/P section Social History Smoking Status: Former smoker alcohol intake: never EXAM Physical Exam Const Vital Signs: 01/26/24 09:21 01/26/24 09:21 Temperature 97.7 F L Temperature Source Oral Pulse Rate 92 Respiratory Rate 18 Blood Pressure 153/92 H 153/92 H Blood Pressure Mean 112 112 Pulse Ox 99 Positive well nourished and well developed General Appearance ED: well developed and NAD HEENT Reports TM's clear and moist mucous membranes normocephalic and atraumatic; Negative for trauma or tenderness Tympanic Membrane ED: Yes TM's clear Eyes PERRL and EOMs intact bilaterally General Eye ED: Negative for pale conjunctiva or scleral icterus Neck no lymphadenopathy, supple and no JVD Neck Narrative: Mild diffuse tenderness over C-spine. No bony step-offs or depressions. Good range of motion General: tenderness Chest Wall inspection of chest normal and palpation of chest normal Chest: Negative for tenderness Resp normal respiratory effort and clear to auscultation bilaterally Effort and Inspection: Negative for respiratory distress or pain with movement Auscultation: Negative for rhonchi, wheezes or diminished lung sounds Cardio regular rate, regular rhythm, S1 normal heart sound, S2 normal heart sound and no murmurs Peripheral Pulses: pulses 2+ throughout GI normal to inspection, nondistended, normoactive bowel sounds, soft to palpation, non-tender, non-distended and no masses Back/Spine no CVA tenderness and no thoracic nor lumbar tenderness Extremity Extremity Narrative: Ecchymosis and bruising noted to the left elbow. No obvious deformity. Good range of motion flexion extension and pronation supination. Neurovascular intact distally. Left knee-patient has a tenderness palpation over the patella and lateral joint line. Good range of motion. No obvious deformity. No effusion. Neurovascular intact. Patient has some mild tenderness over the left hip. There is no shortening or external rotation. General Extremety ED: Negative for edema General Extremity: Negative for edema Neuro oriented x3, CN's II-XII intact bilaterally, no sensory deficits noted and gait normal Sensorium / Orientation: awake, alert, oriented to person, oriented to place and oriented to time Motor Exam: strength 5/5 throughout and strength abnormal Psych mental status grossly normal Skin no rashes or lesions noted and no wounds MDM MDM Lab Data Attestation: I reviewed the patient's lab results. Radiography Diagnostic Testing: Clinical Impression(s) from Imaging Studies Cervical Spine X-Ray 01/26/24 10:00 IMPRESSION: No acute fracture or subluxation. Status post anterior cervical discectomy and fusion at C4/C5 with anatomic alignment. Degenerative disc disease at C6-C7. Electronically Signed: Mao Suero MD at 11:05 EST , Three-view x-ray of the cervical spine obtained interpreted by myself as no evidence of fracture. She was noted to have anterior fusion of C4-5 without evidence of fracture on my interpretation. Radiology in agreement. Radiology also noted degenerative disc disease. Three-view x-rays of the left elbow obtained interpreted by myself as no evidence of fracture or dislocation. 4 view x-rays of the left knee obtained interpreted by myself as no evidence of fracture or dislocation. 1 view pelvis x-ray obtained interpreted by myself as no evidence of fractures. Discharge Plan Triage Chief Complaint: Fall ED Provider: Zoltan Bal Dx/Rx/DC Orders Clinical Impression: Fall, Cervical strain, Contusion of elbow, left, Contusion of left knee Instructions: ED Contusion, Lower Extremity, ED Contusion, Upper Extremity, ED Mechanical Fall, ED Neck Sprain or Strain Prescriptions: No Action levothyroxine 88 mcg capsule 88 mcg PO DAILY multivitamin 1 EACH tablet 1 ea PO DAILY cetirizine 10 MG tablet 10 mg PO DAILY rizatriptan 10 MG tablet 10 mg PO .X1 PRN pantoprazole 40 MG tablet 40 mg PO DAILY Lactobacillus acidophilus 1 EACH capsule 1 ea PO DAILY Cholecalciferol (Vitamin D3) [Vitamin D3] 5,000 UNIT capsule 5,000 units PO DAILY isosorbide mononitrate 30 mg tablet extended release 24 hr 30 mg PO DAILY Patient Comments: TAKE 1 TABLET BY MOUTH EVERY DAY liothyronine 5 mcg tablet 5 mcg PO DAILY zinc 50 mg Tablet 50 mg PO DAILY spironolactone 50 mg tablet 50 mg PO DAILY metoprolol tartrate 25 mg tablet 25 mg PO BID Patient Comments: TAKE 1 TABLET BY MOUTH TWICE A DAY duloxetine 30 mg capsule,delayed release(DR/EC) 30 mg PO DAILY Lo Loestrin Fe 1 mg-10 mcg (24)/10 mcg (2) tablet 1 tab PO DAILY Collagen 1500 Plus C 500 mg-800 mcg- 50 mg Capsule 1 cap PO DAILY Primary Care Provider: Chace Hernandes Referrals: Chace Hernandes MD [Primary Care Provider] - 3-5 Days Print Language: German Disposition Disposition: Home, Self Care
--- NOTE | 2024-01-26 10:00 | RAD_ITS ---
STUDY: X-RAY - CERVICAL SPINE REASON FOR EXAM: Female, 48 years old. fall TECHNIQUE: 3 view(s) of the cervical spine were obtained. COMPARISON: 07/10/2021 FINDINGS: Normal anterior atlantoaxial articulation. Normal odontoid process. Normal cervical lordosis. Status post anterior cervical discectomy and fusion at C4/C5 with anatomic alignment. Focal disc space narrowing and osteophyte formation at C6-C7 consistent with degenerative disc disease. Normal visualized intervertebral neuroforamina. The soft tissue structures are unremarkable. RAD/Cerv Spine 2 or 3 Views IMPRESSION: No acute fracture or subluxation. Status post anterior cervical discectomy and fusion at C4/C5 with anatomic alignment. Degenerative disc disease at C6-C7. Electronically Signed: Mao Suero MD at 11:05 EST ,
--- NOTE | 2024-01-26 10:00 | RAD_ITS ---
STUDY: X-RAY - LEFT ELBOW REASON FOR EXAM: Female, 48 years old. fall TECHNIQUE: 3 view(s) of the elbow. COMPARISON: None. FINDINGS: Normal visualized humerus, radius and ulna. Normal radiocapitellar and ulnotrochlear articulations. The soft tissue structures are unremarkable. RAD/Elbow min 3 Views IMPRESSION: Normal x-ray examination of the elbow. Electronically Signed: Mao Suero MD at 11:06 EST ,
--- NOTE | 2024-01-26 10:00 | RAD_ITS ---
STUDY: X-RAY - PELVIS REASON FOR EXAM: Female, 48 years old. fall TECHNIQUE: One view of the pelvis was obtained. COMPARISON: None. FINDINGS: There is a non-specific bowel gas pattern. Normal visualized soft tissue structures. Normal bilateral iliac wings, sacroiliac joints and visualized sacrum. Normal visualized bilateral superior and inferior pubic rami. Normal pubic symphysis. Normal ischial tuberosities. Normal visualized right femoral head. Normal right acetabulum. Normal right hip joint. Normal visualized left femoral head. Normal left acetabulum. Normal left hip joint. RAD/Pelvis 1 or 2 Views IMPRESSION: Normal x-ray examination of the pelvis. Electronically Signed: Mao Suero MD at 11:07 [facility] ,
--- NOTE | 2024-01-26 10:00 | RAD_ITS ---
STUDY: X-RAY - LEFT KNEE REASON FOR EXAM: Female, 48 years old. fall TECHNIQUE: 4 view(s) of the knee. COMPARISON: None. FINDINGS: Normal visualized distal femur. Normal visualized proximal tibia and fibula. Normal proximal tibiofibular articulation. Normal medial femorotibial compartment. Normal lateral femorotibial compartment. Normal patellofemoral articulation. The soft tissue structures are unremarkable. RAD/Knee 4 or More Views IMPRESSION: Normal x-ray examination of the knee. Electronically Signed: Mao Suero MD at 11:06 EST ,
[2024-01-26 11:13] VITALS: BP 125/85; PULSE 74
== END 2024-01-26 11:16 | disposition home or self-care (01) ==
PROVIDERS: Emergency Provider Emergency Medicine; PCP Family Medicine; Visit Provider Emergency Medicine
DX: S16.1XXA Strain of muscle, fascia and tendon at neck level, initial encounter (principal); I10 Essential (primary) hypertension; S80.02XA Contusion of left knee, initial encounter; Z87.891 Personal history of nicotine dependence; S50.02XA Contusion of left elbow, initial encounter; E78.00 Pure hypercholesterolemia, unspecified; W01.10XA Fall on same level from slipping, tripping and stumbling with subsequent striking against unspecified object, initial encounter; Y93.01 Activity, walking, marching and hiking; Y92.89 Other specified places as the place of occurrence of the external cause; G47.30 Sleep apnea, unspecified; Z99.89 Dependence on other enabling machines and devices; K21.9 Gastro-esophageal reflux disease without esophagitis; Z79.899 Other long term (current) drug therapy; E03.9 Hypothyroidism, unspecified; Z79.890 Hormone replacement therapy; F41.9 Anxiety disorder, unspecified; Z90.49 Acquired absence of other specified parts of digestive tract
CPT/HCPCS: 72040; 72170; 73080; 73564; 99284

== ENCOUNTER 2024-05-02 08:30 | Outpatient (RCR) | payer OTHER, SELFPAY ==
--- NOTE | 2024-04-28 09:31 | HP.PTEVAL ---
Patient's Visit Information Visit Information Visit Information: TERESA SELF is a 48 year old F referred to Physical Therapy by Avril Landers PA-C with a diagnosis of s/p subacromial decompression on 03-24-24. Date of Evaluation: 04/28/24 Physical Therapist: ROLAND Menendez Visit Plan Frequency: 2x /Week Duration: 2 Months Plan: 2X/ week for 8 weeks for R shoulder postural exercises, scapular strength, R shoulder PROM, AAROM, AROM, R shoulder RC strength as able once AAROM/AROM achieved with HEP. towel flexion up the wall 2 X 10 (increase pain with this so opted for pulleys and supine wand flexion at this time) HEP: mid rows orange, supine wand flexion and ER with a towel, scapular retraction (down and back), pulleys into flexion Subjective Subjective: Pt had surgery on 03-24 and she had R subacromial decompression, removed bone spur and clavicle shaved. She started therapy at [facility] but it was too far of a drive so she decided to come here. She is R handed. She was sick last week and delayed this appt. She feels that she should be moving faster. She is doing wand ER, wand IR or towel, wall wash in the shower or table, door way stretch with arms down on the rail. She gets a lot of discomfort with the exercises and takes pain meds at night. She has a pain on the front of the shoulder and pain down the side of the arm. She ice with ice machine. 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 Balance/Special Test Scores Quick DASH Score: 68.1800 Goals Goal 1:: I HEP Goal Time Frame: 6-8 Weeks Goal 2:: Increase R shoulder AROM to equal that of the L (at the time of eval: UE AROM: R shoulder [id number] and L 157 R shoulder ABD 64 and L 160 R shoulder ER 25 and L 60 R shoulder R IR PSIS and L T6). Goal Time Frame: 6-8 Weeks Goal 3:: Be able to sit and walk with more upright posture and retraction of B shoulders Goal Time Frame: 6-8 Weeks Goal 4:: Be able to use her R UE at work or to change the radio in the car without having pain Goal Time Frame: 6-8 Weeks Rehabilitation Potential Rehabilitation Potential: Good Anticipated Interventions Patient/Client Instruction: Educate patient on: Condition and Plan of Care For the Purpose of:: To decrease pain, To increase ROM, To improve nutrient delivery to tissue, To improve muscle performance and motor function, To improve ability to perform ADL's, To increase tolerance to activity/condition/position, To improve performance and independence with ADL's, To improve health of tissue, To decrease soft tissue restriction and To increase flexibility/ROM Therapeutic Exercise to Include: Strength training, Postural training, Flexibilty training, Neuromotor development, Passive ROM, Active ROM and Scapular Strength/Stabilization For the Purpose of:: To decrease pain, To increase ROM, To improve nutrient delivery to tissue, To improve muscle performance and motor function, To improve ability to perform ADL's, To increase tolerance to activity/condition/position, To improve performance and independence with ADL's, To decrease level of supervision to perform tasks, To improve ability of physical actions for home/community/work/leisure, To improve health of tissue, To decrease soft tissue restriction and To increase flexibility/ROM Manual Therapy Techniques to Include: Passive ROM and Soft tissue mobilization For the Purpose of:: To decrease pain, To increase ROM, To improve nutrient delivery to tissue, To improve muscle performance and motor function, To improve ability to perform ADL's, To increase tolerance to activity/condition/position, To improve health of tissue, To decrease soft tissue restriction and To increase flexibility/ROM Cryotherapy (ice pack, ice massage): Yes Thermo therapy (hot pack): Yes For the Purpose of:: To decrease pain, To decrease swelling/inflammation, To increase ROM and To improve nutrient delivery to tissue Text: Thank you for the opportunity to evaluate your patient. For Medicare and Medicare HMO plans, please review the plan of care and approve it. It will need to be FAXED BACK to us at [phone] for Medicare purposes. For Medicare only, by signing this I certify the plan of care. Please let me know if there are questions or concerns regarding this plan of care. Physician Signature: Date:
--- NOTE | 2024-04-28 09:31 | HP.PTEVAL ---
Patient's Visit Information Visit Information Visit Information: TERESA SELF is a 48 year old F referred to Physical Therapy by Avril Landers PA-C with a diagnosis of s/p subacromial decompression on 03-24-24. Date of Evaluation: 04/28/24 Physical Therapist: ROLAND Menendez Visit Plan Frequency: 2x /Week Duration: 2 Months Plan: 2X/ week for 8 weeks for R shoulder postural exercises, scapular strength, R shoulder PROM, AAROM, AROM, R shoulder RC strength as able once AAROM/AROM achieved with HEP. towel flexion up the wall 2 X 10 (increase pain with this so opted for pulleys and supine wand flexion at this time) HEP: mid rows orange, supine wand flexion and ER with a towel, scapular retraction (down and back), pulleys into flexion Subjective Subjective: Pt had surgery on 03-24 and she had R subacromial decompression, removed bone spur and clavicle shaved. She started therapy at [facility] but it was too far of a drive so she decided to come here. She is R handed. She was sick last week and delayed this appt. She feels that she should be moving faster. She is doing wand ER, wand IR or towel, wall wash in the shower or table, door way stretch with arms down on the rail. She gets a lot of discomfort with the exercises and takes pain meds at night. She has a pain on the front of the shoulder and pain down the side of the arm. She ice with ice machine. 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 Balance/Special Test Scores Quick DASH Score: 68.1800 Goals Goal 1:: I HEP Goal Time Frame: 6-8 Weeks Goal 2:: Increase R shoulder AROM to equal that of the L (at the time of eval: UE AROM: R shoulder [id number] and L 157 R shoulder ABD 64 and L 160 R shoulder ER 25 and L 60 R shoulder R IR PSIS and L T6). Goal Time Frame: 6-8 Weeks Goal 3:: Be able to sit and walk with more upright posture and retraction of B shoulders Goal Time Frame: 6-8 Weeks Goal 4:: Be able to use her R UE at work or to change the radio in the car without having pain Goal Time Frame: 6-8 Weeks Rehabilitation Potential Rehabilitation Potential: Good Anticipated Interventions Patient/Client Instruction: Educate patient on: Condition and Plan of Care For the Purpose of:: To decrease pain, To increase ROM, To improve nutrient delivery to tissue, To improve muscle performance and motor function, To improve ability to perform ADL's, To increase tolerance to activity/condition/position, To improve performance and independence with ADL's, To improve health of tissue, To decrease soft tissue restriction and To increase flexibility/ROM Therapeutic Exercise to Include: Strength training, Postural training, Flexibilty training, Neuromotor development, Passive ROM, Active ROM and Scapular Strength/Stabilization For the Purpose of:: To decrease pain, To increase ROM, To improve nutrient delivery to tissue, To improve muscle performance and motor function, To improve ability to perform ADL's, To increase tolerance to activity/condition/position, To improve performance and independence with ADL's, To decrease level of supervision to perform tasks, To improve ability of physical actions for home/community/work/leisure, To improve health of tissue, To decrease soft tissue restriction and To increase flexibility/ROM Manual Therapy Techniques to Include: Passive ROM and Soft tissue mobilization For the Purpose of:: To decrease pain, To increase ROM, To improve nutrient delivery to tissue, To improve muscle performance and motor function, To improve ability to perform ADL's, To increase tolerance to activity/condition/position, To improve health of tissue, To decrease soft tissue restriction and To increase flexibility/ROM Cryotherapy (ice pack, ice massage): Yes Thermo therapy (hot pack): Yes For the Purpose of:: To decrease pain, To decrease swelling/inflammation, To increase ROM and To improve nutrient delivery to tissue Text: Thank you for the opportunity to evaluate your patient. For Medicare and Medicare HMO plans, please review the plan of care and approve it. It will need to be FAXED BACK to us at [phone] for Medicare purposes. For Medicare only, by signing this I certify the plan of care. Please let me know if there are questions or concerns regarding this plan of care. Physician Signature: Date:
--- NOTE | 2024-08-15 08:47 | HP.PT.NRP ---
Patient Information Patient Information: TERESA SELF was seen in my office for initial evaluation on 04/28/24. The following Plan of Care was established for this patient: POC Established Initial Frequency: 2x /Week Initial Duration: 2 Months Anticipated Interventions Patient/Client Instruction: Educate patient on: Condition and Plan of Care For the Purpose of:: To decrease pain, To increase ROM, To improve nutrient delivery to tissue, To improve muscle performance and motor function, To improve ability to perform ADL's, To increase tolerance to activity/condition/position, To improve performance and independence with ADL's, To improve health of tissue, To decrease soft tissue restriction and To increase flexibility/ROM Therapeutic Exercise to Include: Strength training, Postural training, Flexibilty training, Neuromotor development, Passive ROM, Active ROM and Scapular Strength/Stabilization For the Purpose of:: To decrease pain, To increase ROM, To improve nutrient delivery to tissue, To improve muscle performance and motor function, To improve ability to perform ADL's, To increase tolerance to activity/condition/position, To improve performance and independence with ADL's, To decrease level of supervision to perform tasks, To improve ability of physical actions for home/community/work/leisure, To improve health of tissue, To decrease soft tissue restriction and To increase flexibility/ROM Manual Therapy Techniques to Include: Passive ROM and Soft tissue mobilization For the Purpose of:: To decrease pain, To increase ROM, To improve nutrient delivery to tissue, To improve muscle performance and motor function, To improve ability to perform ADL's, To increase tolerance to activity/condition/position, To improve health of tissue, To decrease soft tissue restriction and To increase flexibility/ROM Cryotherapy (ice pack, ice massage): Yes Thermo therapy (hot pack): Yes For the Purpose of:: To decrease pain, To decrease swelling/inflammation, To increase ROM and To improve nutrient delivery to tissue Last Seen Last Seen: This patient was last seen in our office 05/02/24. Pertinent comments regarding their Physical therapy will appear below: VALARIE PT At this point I will be discontinuing this patient from physical therapy. I would be happy to see this patient again in the future if found appropriate by the physician. Thank you! Haritha Torres, MPT Balance/Gait/Functional tests Balance/Special Test Scores Quick DASH Score: 68.1800
== END 2024-05-02 19:00 | disposition home or self-care (01) ==
LOC: PT 08:30
PROVIDERS: PCP Family Medicine; Referring Provider Physician Assistant; Visit Provider Physician Assistant
DX: M19.011 Primary osteoarthritis, right shoulder (principal)
CPT/HCPCS: 97110; 97162

== ENCOUNTER → 2024-06-14 | Outpatient (CLI) | payer OTHER, SELFPAY ==
--- NOTE | 2024-06-14 17:16 | RAD_ITS ---
PROCEDURE: CERV SPINE 2 OR 3 VIEWS 06/14/2024 REASON FOR EXAM: PAIN TECHNIQUE: 3 views of the cervical spine. FINDINGS: Vertebrae: No fracture. disc spaces: Disc space narrowing and osteophyte formation of the lower cervical spine consistent with degenerative disc disease. Alignment: Status post anterior cervical discectomy and fusion at C4/C5 with anatomic alignment. soft tissues: Unremarkable. Other: RAD/Cerv Spine 2 or 3 Views IMPRESSION: Status post anterior cervical discectomy and fusion at C4/C5 with anatomic alig nment. Degenerative disc disease in the lower cervical spine. Disclaimer: Reading Location: [id number]
== END | disposition home or self-care (01) ==
LOC: RAD 17:01
PROVIDERS: PCP Family Medicine; Referring Provider Anesthesiology Pain Medicine; Visit Provider Anesthesiology Pain Medicine
DX: M54.12 Radiculopathy, cervical region (principal)
CPT/HCPCS: 72040